=== PATIENT | male | born 1945 | race Caucasian/White ===

== ENCOUNTER → 2023-12-05 10:39 | Outpatient (REF) | payer MEDICARE, BC, SELFPAY | LOC: RAD 10:39 | PROVIDERS: ATTENDING PHYSICIAN Physician Assistant Medical | DX: R74.8 Abnormal levels of other serum enzymes (principal) | CPT/HCPCS: 76700 ==

== ENCOUNTER → 2023-12-15 07:53 | Outpatient (REF) | payer MEDICARE, BC, SELFPAY | LOC: RCS 07:53 | PROVIDERS: ATTENDING PHYSICIAN Nurse Practitioner; FAMILY PHYSICIAN Physician Assistant Medical | DX: I25.10 Atherosclerotic heart disease of native coronary artery without angina pectoris (principal); I34.0 Nonrheumatic mitral (valve) insufficiency; I48.19 Other persistent atrial fibrillation | CPT/HCPCS: 93306 ==

== ENCOUNTER 2024-04-21 15:44 | Outpatient (RCR) | payer MEDICARE, BC, SELFPAY | END 2024-04-21 23:59 | disposition home or self-care (01) | LOC: RPT 15:44 | PROVIDERS: ATTENDING PHYSICIAN Specialist; FAMILY PHYSICIAN Family Medicine | DX: R26.89 Other abnormalities of gait and mobility (principal); G90.09 Other idiopathic peripheral autonomic neuropathy; Z73.6 Limitation of activities due to disability; M62.81 Muscle weakness (generalized); R26.2 Difficulty in walking, not elsewhere classified; R29.6 Repeated falls | CPT/HCPCS: 97110; 97112; 97162; 97530 ==

== ENCOUNTER 2024-05-20 13:48 | Outpatient (RCR) | payer MEDICARE, BC, SELFPAY | END 2024-05-20 23:59 | disposition home or self-care (01) | LOC: RPT 13:48 | PROVIDERS: ATTENDING PHYSICIAN Specialist; FAMILY PHYSICIAN Family Medicine | DX: R26.89 Other abnormalities of gait and mobility (principal); G90.09 Other idiopathic peripheral autonomic neuropathy; Z73.6 Limitation of activities due to disability; M62.81 Muscle weakness (generalized); R26.2 Difficulty in walking, not elsewhere classified; R29.6 Repeated falls | CPT/HCPCS: 97110; 97112 ==

== ENCOUNTER 2024-06-04 10:08 | Outpatient (RCR) | payer MEDICARE, BC, SELFPAY | END 2024-06-04 23:59 | disposition home or self-care (01) | LOC: RPT 10:08 | PROVIDERS: ATTENDING PHYSICIAN Specialist; FAMILY PHYSICIAN Family Medicine | DX: R26.89 Other abnormalities of gait and mobility (principal); G90.09 Other idiopathic peripheral autonomic neuropathy; Z73.6 Limitation of activities due to disability; M62.81 Muscle weakness (generalized); R29.6 Repeated falls | CPT/HCPCS: 97110; 97112 ==

== ENCOUNTER → 2024-06-29 14:43 | Outpatient (REF) | payer MEDICARE, BC, SELFPAY | LOC: RCS 14:43 | PROVIDERS: ATTENDING PHYSICIAN Internal Medicine Cardiovascular Disease; FAMILY PHYSICIAN Physician Assistant Medical | DX: J90 Pleural effusion, not elsewhere classified (principal) | CPT/HCPCS: 93306 ==

== ENCOUNTER → 2024-07-08 09:46 | Outpatient (REF) | payer MEDICARE, BC, SELFPAY | LOC: RAD 09:46 | PROVIDERS: ATTENDING PHYSICIAN Internal Medicine Cardiovascular Disease; FAMILY PHYSICIAN Physician Assistant Medical | DX: J90 Pleural effusion, not elsewhere classified (principal); R93.5 Abnormal findings on diagnostic imaging of other abdominal regions, including retroperitoneum | CPT/HCPCS: 75574; Q9967 ==

== ENCOUNTER 2024-09-22 06:33 | Day surgery (SDC) | payer MEDICARE, BC, SELFPAY | END 2024-09-22 10:03 | disposition home or self-care (01) | LOC: GI 06:33 | PROVIDERS: ATTENDING PHYSICIAN Internal Medicine Gastroenterology; FAMILY PHYSICIAN Family Medicine | DX: K74.60 Unspecified cirrhosis of liver (principal) | CPT/HCPCS: 43235 ==

== ENCOUNTER → 2024-11-01 09:29 | Outpatient (REF) | payer OTHER, SELFPAY | LOC: RAD 09:29 | PROVIDERS: ATTENDING PHYSICIAN Internal Medicine Gastroenterology; FAMILY PHYSICIAN Family Medicine | DX: K74.60 Unspecified cirrhosis of liver (principal) | CPT/HCPCS: 76700 ==

== ENCOUNTER → 2024-11-29 08:46 | Outpatient (REF) | payer OTHER, SELFPAY | LOC: RAD 08:46 | PROVIDERS: ATTENDING PHYSICIAN Internal Medicine Gastroenterology | DX: J90 Pleural effusion, not elsewhere classified (principal) | CPT/HCPCS: 71046 ==

== ENCOUNTER → 2025-05-04 14:19 | Outpatient (REF) | payer OTHER, SELFPAY | LOC: RAD 14:19 | PROVIDERS: ATTENDING PHYSICIAN Internal Medicine Gastroenterology; FAMILY PHYSICIAN Physician Assistant Medical | DX: K74.60 Unspecified cirrhosis of liver (principal) | CPT/HCPCS: 76700 ==

== ENCOUNTER → 2025-05-16 10:05 | Outpatient (REF) | payer OTHER, SELFPAY ==
[2025-05-16 11:44] LABS: Hematocrit 38.8 % (39.0-52.0); Hemoglobin 12.8 g/dL (13.0-18.0); Mean Corp Hgb Conc. 33.0 g/dL (33.0-37.0); Mean Corpuscular Volume 91.9 fL (80.0-94.0); Nucleated Red Blood Cells % 0 % (-); Platelet Count 153 10^3/uL (130-400); Red Cell Dist. Width 14.0 % (11.5-14.5)
== END ==
LOC: RAD 10:05
PROVIDERS: ATTENDING PHYSICIAN Physician Assistant Medical
DX: I48.11 Longstanding persistent atrial fibrillation (principal); M79.89 Other specified soft tissue disorders; R22.41 Localized swelling, mass and lump, right lower limb
CPT/HCPCS: 36415; 83880; 85025; 93971

== ENCOUNTER → 2025-06-16 11:10 | Outpatient (REF) | payer OTHER, SELFPAY | LOC: DHVS 11:10 | PROVIDERS: ATTENDING PHYSICIAN Physician Assistant Medical | DX: M79.89 Other specified soft tissue disorders (principal); R59.1 Generalized enlarged lymph nodes | CPT/HCPCS: 76882 ==